=== PATIENT | female | born 1985 | race Hispanic/Latino ===

== ENCOUNTER 2018-06-10 10:32 | Emergency (ER) | payer BC ==
[2018-06-10 10:32] VITALS: BMI 26.6
[2018-06-10 10:46] VITALS: RESP 18; TEMP 98.2; O2SAT 99
--- NOTE | 2018-06-10 10:58 | ED PDOC ---
Arrival/HPI - General Chief Complaint: Anxiety Historian: Patient - History of Present Illness Narrative History of Present Illness (Text): 06/10/18 10:52 33 y/o female, no significant pmh, nkda, c/o lt. sided rib/back injury s/p ceiling collapsed and dry wall hit on the lt. posterior rib region. Pt. has no head/neck/chest/abdomen/extremity injury, no numbness or tingling, no night sweat, no rash, no change in vision, no LOC, able to recall the whole event, no other medical or psychological complaints. Past Medical History - Provider Review Nursing Documentation Reviewed: Yes - Past History Past History: No Previous - Infectious Disease Hx of Infectious Diseases: None - Tetanus Immunization Tetanus Immunization: Unknown - Reproductive Currently : No - Past Medical History Past Medical History: No Previous - Psychiatric Hx Anxiety: Yes Hx Substance Use: No - Past Surgical History Past Surgical History: No Previous - Anesthesia Hx Anesthesia: No - Suicidal Assessment Feels Threatened In Home Enviroment: No Family/Social History - Physician Review Nursing Documentation Reviewed: Yes Family/Social History: Unknown Family HX Smoking Status: Never Smoked Hx Alcohol Use: Yes Frequency of alcohol use: Socially Hx Substance Use: No Hx Substance Use Treatment: No Allergies/Home Meds Allergies/Adverse Reactions: Allergies No Known Allergies Allergy (Verified 06/10/18 10:46) Home Medications: Home Meds Medication Instructions Recorded Confirmed ALPRAZolam [Xanax] 1 mg PO DAILY PRN 06/10/18 06/10/18 Review of Systems - Review of Systems Constitutional: absent: Fatigue, Fevers Eyes: absent: Vision Changes ENT: absent: Hearing Changes Respiratory: absent: SOB, Cough Cardiovascular: absent: Chest Pain Gastrointestinal: absent: Abdominal Pain, Diarrhea, Nausea, Vomiting Musculoskeletal: Arthralgias, Myalgias. absent: Back Pain, Neck Pain Skin: absent: Rash, Pruritis Neurological: absent: Headache, Dizziness Psychiatric: absent: Anxiety, Depression, Suicidal Ideation Physical Exam Vital Signs Reviewed: Yes Vital Signs Temp Pulse Resp BP Pulse Ox 06/10/18 10:42 98.2 F 98 H 18 110/66 99 Temperature: Afebrile Blood Pressure: Normal Pulse: Regular Respiratory Rate: Normal Appearance: Positive for: Well-Appearing, Non-Toxic, Comfortable Pain Distress: Mild Mental Status: Positive for: Alert and Oriented X 3 - Systems Exam Head: Present: Atraumatic, Normocephalic. No: Tenderness, Contusion, Swelling, Ecchymosis, Abrasion, Laceration, Other Pupils: Present: PERRL Extroacular Muscles: Present: EOMI Conjunctiva: Present: Normal Ears: Present: NORMAL TM, Normal Canal. No: Erythema Mouth: Present: Moist Mucous Membranes Pharnyx: No: ERYTHEMA, EXUDATE, TONSILS ENLARGED Nose (External): Present: Atraumatic. No: Abrasion, Contusion, Laceration Nose (Internal): Present: Normal Inspection, No Active Bleeding. No: Edematous, Rhinorrhea, Septal Deviation, Septal Hematoma, Epistaxis Neck: Present: Normal Range of Motion Respiratory/Chest: Present: Clear to Auscultation, Good Air Exchange. No: Respiratory Distress, Accessory Muscle Use Cardiovascular: Present: Regular Rate and Rhythm, Normal S1, S2. No: Murmurs Abdomen: No: Tenderness, Distention, Peritoneal Signs Back: Present: Normal Inspection Upper Extremity: Present: Normal Inspection. No: Cyanosis, Edema Lower Extremity: Present: Normal Inspection. No: Edema Neurological: Present: GCS=15, CN II-XII Intact, Speech Normal, Motor Func Grossly Intact, Gait Normal, Memory Normal Skin: Present: Warm, Dry, Normal Color. No: Rashes Psychiatric: Present: Alert, Oriented x 3, Normal Insight, Normal Concentration Medical Decision Making ED Course and Treatment: 06/10/18 11:05 -xrays -ekg -observe and reassess 06/10/18 13:41 -Urine hcg is negative. -EKG: NSR @ 85 BPM, no ST elevation or depression, no T wave inversion. -Lt. rib and chest xray: Unremarkable radiographs of the chest and left ribs. No left rib fracture. -Dorsal spine: Normal radiographs of the thoracic spine. -Pt. feels well, discussed about the result, incentive spirometer ordered for her for supportive care. -Discharge home with naproxen, lidoderm, bed rest, incentive spirometer, ice compression, follow up with your own pmd and orthopedic within 2 days, retur to the ER for any new or worsening signs or symptoms. - RAD Interpretation Radiology Orders: 06/10/18 10:51 DORSAL (THORACIC) SPINE [RAD] Stat RIBS LEFT & PA CHEST [RAD] Stat -Lt. rib and chest xray: Date of service: 06/10/2018 PROCEDURE: Radiographs of the Chest and Left Ribs. HISTORY: lt. rib injury COMPARISON: None available. TECHNIQUE: Frontal radiograph of the chest and multiple oblique radiographs of the left ribs were obtained. FINDINGS: LEFT RIBS: No fracture or focal lesion visualized. LUNGS: Clear. PLEURA: No pneumothorax or pleural fluid. CARDIOVASCULAR: Normal cardiac size. No pulmonary vascular congestion. No aortic atherosclerotic calcification present OTHER FINDINGS: None. IMPRESSION: Unremarkable radiographs of the chest and left ribs. No left rib fracture. -Dorsal spine: Date of service: 06/10/2018 HISTORY: posterior rib injury COMPARISON: No prior. FINDINGS: BONES: Alignment maintained. No fracture. DISC SPACES: Normal. SOFT TISSUES: Normal. OTHER FINDINGS: None. IMPRESSION: Normal radiographs of the thoracic spine. Tapper Supervisor: Radiologist - EKG Interpretation EKG Interpretation (Text): 06/10/18 11:06 -EKG: NSR @ 85 BPM, no ST elevation or depression, no T wave inversion. Interpreted by ED Physician: Yes Type: 12 lead EKG - PA / MD ALLERGY IMMUNOLOGY / Resident Statement MD/DO has reviewed & agrees with the documentation as recorded. Disposition/Present on Arrival - Present on Arrival Any Indicators Present on Arrival: No History of DVT/PE: No History of Uncontrolled Diabetes: No Urinary Catheter: No History of Decub. Ulcer: No History Surgical Site Infection Following: None - Disposition Have Diagnosis and Disposition been Completed?: Yes Diagnosis: Rib injury, Arthralgia Disposition: HOME/ ROUTINE Disposition Time: 13:42 Patient Plan: Discharge Patient Problems: Current Active Problems Problem Status Onset Arthralgia Acute Rib injury Acute Condition: IMPROVED Discharge Instructions (ExitCare): Muscle and Bone Pain (DC) Additional Instructions: -Discharge home with naproxen, lidoderm, bed rest, incentive spirometer, ice compression, follow up with your own pmd and orthopedic within 2 days, retur to the ER for any new or worsening signs or symptoms. Prescriptions: Lidocaine 5% [Lidoderm] 1 patch TP DAILY PRN #14 patch PRN Reason: Other Naproxen 500 mg PO BID PRN #20 tablet PRN Reason: Other Referrals: FAMILY PROVIDER,NO [Primary Care Provider] - Follow up with primary José Skinner MD [Staff Provider] - Follow up with primary Alcoholics Anonymous [Outside] - Follow up with primary [facility] [place] [facility] [place] - Follow up with primary Forms: [employer] (Ukrainian), WORK NOTE
[2018-06-10 12:00] VITALS: BP 106/68; PULSE 89
--- NOTE | 2018-06-10 13:16 | RAD ---
Date of service: 06/10/2018 PROCEDURE: Radiographs of the Chest and Left Ribs. HISTORY: lt. rib injury COMPARISON: None available. TECHNIQUE: Frontal radiograph of the chest and multiple oblique radiographs of the left ribs were obtained. FINDINGS: LEFT RIBS: No fracture or focal lesion visualized. LUNGS: Clear. PLEURA: No pneumothorax or pleural fluid. CARDIOVASCULAR: Normal cardiac size. No pulmonary vascular congestion. No aortic atherosclerotic calcification present OTHER FINDINGS: None. IMPRESSION: Unremarkable radiographs of the chest and left ribs. No left rib fracture.
--- NOTE | 2018-06-10 13:18 | RAD ---
Date of service: 06/10/2018 HISTORY: posterior rib injury COMPARISON: No prior. FINDINGS: BONES: Alignment maintained. No fracture. DISC SPACES: Normal. SOFT TISSUES: Normal. OTHER FINDINGS: None. IMPRESSION: Normal radiographs of the thoracic spine.
--- NOTE | 2018-06-11 08:17 | CARD ---
APPROVED REPORT Date of service: 06/10/2018 EKG Measurement Heart [id number] <Conclusion> Normal sinus rhythm Normal ECG
== END 2018-06-10 14:00 | disposition home or self-care (01) ==
LOC: ED 10:32
DX: S29.9XXA Unspecified injury of thorax, initial encounter (principal); W20.8XXA Other cause of strike by thrown, projected or falling object, initial encounter; M25.50 Pain in unspecified joint
CPT/HCPCS: 71101; 72070; 81025; 93005; 96372; 99283; J1885

== ENCOUNTER 2018-06-10 16:33 | Emergency (ER) | payer BC ==
[2018-06-10 16:56] VITALS: BMI 27.3
--- NOTE | 2018-06-10 18:46 | ED PDOC ---
Arrival/HPI - General Chief Complaint: Headache Time Seen by Provider: 06/10/18 17:33 Historian: Patient - History of Present Illness Narrative History of Present Illness (Text): 06/10/18 18:42 33yr old female presents today with headache, dizziness, photophobia s/p injury. pt states today part of her ceiling feel onto her. pt states she found herself on the ground. pt states initially she wasnt having a headache. pt states now she is having a headache, feeling dizzy and having multiple episodes of vomiting at home. pt denies abdominal pain. no chest pain or shortness of breath. pt denies numbness, weakness, tingling in the extremities. c/o upper back and neck pain. no other complaints. Symptom Onset: Sudden Symptom Course: Improving Past Medical History - Provider Review Nursing Documentation Reviewed: Yes - Travel History Have you recently traveled outside [place] w/in the past 3 mons?: No - Past History Past History: No Previous - Infectious Disease Hx of Infectious Diseases: None - Tetanus Immunization Tetanus Immunization: Unknown - Reproductive Currently : No - Past Medical History Past Medical History: No Previous - Psychiatric Hx Anxiety: Yes Hx Substance Use: No - Past Surgical History Past Surgical History: No Previous - Anesthesia Hx Anesthesia: No - Suicidal Assessment Feels Threatened In Home Enviroment: No Family/Social History - Physician Review Nursing Documentation Reviewed: Yes Family/Social History: Unknown Family HX Smoking Status: Never Smoked Hx Alcohol Use: Yes Hx Substance Use: No Hx Substance Use Treatment: No Allergies/Home Meds Allergies/Adverse Reactions: Allergies No Known Allergies Allergy (Verified 06/10/18 10:46) Home Medications: Home Meds Medication Instructions Recorded Confirmed ALPRAZolam [Xanax] 1 mg PO DAILY PRN 06/10/18 06/10/18 Review of Systems - Review of Systems Constitutional: absent: Fatigue, Fevers Eyes: Photophobia. absent: Vision Changes Respiratory: absent: SOB, Cough Cardiovascular: absent: Chest Pain, Palpitations Gastrointestinal: Nausea, Vomiting. absent: Abdominal Pain, Constipation, Diarrhea Genitourinary Female: absent: Dysuria Musculoskeletal: Back Pain, Neck Pain. absent: Arthralgias Skin: absent: Rash, Pruritis Neurological: Headache, Dizziness Psychiatric: absent: Anxiety, Depression, Suicidal Ideation Physical Exam Vital Signs Reviewed: Yes Vital Signs Temp Pulse Resp BP Pulse Ox 06/10/18 17:00 97.3 F L 83 18 109/68 95 Temperature: Afebrile Blood Pressure: Normal Pulse: Regular Respiratory Rate: Normal Appearance: Positive for: Well-Appearing, Non-Toxic, Comfortable Pain Distress: None Mental Status: Positive for: Alert and Oriented X 3 - Systems Exam Head: Present: Atraumatic. No: Tenderness, Swelling, Ecchymosis Pupils: Present: PERRL Extroacular Muscles: Present: EOMI Conjunctiva: Present: Normal Ears: Present: Normal, NORMAL TM Mouth: Present: Moist Mucous Membranes Pharnyx: Present: Normal Nose (External): Present: Atraumatic Nose (Internal): Present: Normal Inspection Neck: Present: Normal Range of Motion, MIDLINE TENDERNESS, Paraspinal Tenderness, Trachea Midline Respiratory/Chest: Present: Clear to Auscultation, Good Air Exchange. No: Respiratory Distress, Accessory Muscle Use, Tender to Palpation Cardiovascular: Present: Regular Rate and Rhythm, Normal S1, S2. No: Murmurs Abdomen: Present: Normal Bowel Sounds. No: Tenderness, Distention, Rebound, Guarding Back: Present: Normal Inspection, Paraspinal Tenderness (+ left sided thoracic paraspinal tenderness. no edema. no midline tenderness. ). No: Midline Tenderness Upper Extremity: Present: Normal Inspection, Normal ROM Lower Extremity: Present: Normal Inspection, Normal ROM Neurological: Present: GCS=15, Speech Normal, Motor Func Grossly Intact, Normal Sensory Function Skin: Present: Warm, Dry, Normal Color. No: Rashes Psychiatric: Present: Alert, Oriented x 3 Medical Decision Making ED Course and Treatment: 06/10/18 18:51 33yr old female with headache and dizziness s/p head injury. head ct; FINDINGS: BRAIN No acute intraparenchymal hemorrhage. No mass lesion. No CT evidence for acute territorial infarct. No midline shift or extra-axial collections. VENTRICLES: No hydrocephalus. ORBITS: The orbits are unremarkable. SINUSES AND MASTOIDS: The paranasal sinuses and mastoid air cells are clear. BONES: No fracture. SOFT TISSUES: Unremarkable. IMPRESSION: No acute intracranial abnormality. Electronically signed on Jun 10, 2018 7:39:32 PM EST by: Primo Flaherty M.D., Certified by ABR, Diagnostic Radiology cervical spine ct; FINDINGS: ALIGNMENT: Bony alignment is anatomic. Marginal osteophytic spurring arises from C5, C6 and C7. DEGENERATIVE CHANGES: No significant canal stenosis or neural foraminal narrowing evident. There is mild degenerative disc disease noted at C5-6. SOFT TISSUES: The prevertebral soft tissues are within normal limits. BONES: No acute fracture or aggressive appearing osseous lesion. SINUSES: Incidental note is made of focal sinusitis in the posterior sphenoid sinus. IMPRESSION: 1. No acute cervical spine abnormality. 2. Evidence of mild degenerative disc disease at C5-6. 3. Marginal osteophytic spurring arises from the C5, C6, C7 vertebrae. 4. Incidental note is made of minimal focal sinusitis in the sphenoid sinus. Electronically signed on Jun 10, 2018 8:39:26 PM EST by: Cleveland Gramajo M.D., SHANE Certified By [facility]BR & [facility] Fellowship Trained MRI and CT Specialist eduardo gallo 06/10/18 20:38 while in the ER, the patient began to feel anxious and she saw someone who reminded her of her mother. 0.5 mg of Xanax were given by mouth. I discussed results in depth with the patient. This been no vomiting in the ER. Her headache has resolved. She denies dizziness. I've advised follow-up with primary care physician within the next 2 days and return immediately if symptoms worsen persist or if new concerning symptoms develop Patient verbalizes understanding of discharge instructions and need for immediate followup. all aspects of this case were discussed the attending of record. Impression: Head injury, concussion symptoms Tylenol every 4 hours as needed for pain Increase fluids Follow-up with the primary care physician within the next 2 days Follow-up with the neurologist within the next 2 days Return immediately if symptoms worsen persist or if new concerning symptoms develop 06/10/18 20:47 - RAD Interpretation Radiology Orders: 06/10/18 18:40 CERVICAL SPINE W/O CONTRAST [CT] Stat HEAD W/O CONTRAST [CT] Stat - Medication Orders Current Medication Orders: Ondansetron HCl (Zofran Odt) 4 mg PO STAT STA Stop: 06/10/18 18:42 Disposition/Present on Arrival - Present on Arrival Any Indicators Present on Arrival: No History of DVT/PE: No History of Uncontrolled Diabetes: No Urinary Catheter: No History of Decub. Ulcer: No History Surgical Site Infection Following: None - Disposition Have Diagnosis and Disposition been Completed?: Yes Diagnosis: Head injury, Headache Disposition: HOME/ ROUTINE Disposition Time: 20:39 Patient Plan: Discharge Condition: GOOD Discharge Instructions (ExitCare): Concussion in Adults, Closed Head Injury (DC), Headache, Adult (DC) Additional Instructions: Tylenol every 4 hours as needed for pain Increase fluids Follow-up with the primary care physician within the next 2 days Follow-up with the neurologist within the next 2 days Return immediately if symptoms worsen persist or if new concerning symptoms develop Referrals: Rayshawn Monterroso MD [Staff Provider] - Follow up with primary Candace Woodall MD [Medical Doctor] - Follow up with primary [facility] [Outside] - Follow up with primary Forms: [employer] (Mongolian), WORK NOTE
[2018-06-10 21:19] VITALS: BP 110/72; PULSE 80; RESP 19; O2SAT 99
[2018-06-10 21:22] VITALS: TEMP 97.6
--- NOTE | 2018-06-11 08:32 | CT ---
Date of service: 06/10/2018 PROCEDURE: CT HEAD WITHOUT CONTRAST. HISTORY: headache s/p head injury COMPARISON: Unenhanced head CT 06/03/2012. TECHNIQUE: Axial computed tomography images were obtained through the head/brain without intravenous contrast. Radiation dose: Total exam DLP = 908.28 mGy-cm. This CT exam was performed using one or more of the following dose reduction techniques: Automated exposure control, adjustment of the mA and/or kV according to patient size, and/or use of iterative reconstruction technique. FINDINGS: HEMORRHAGE: No intracranial hemorrhage. BRAIN: Normal childers-white matter differentiation and density are appreciated throughout the cerebrum and cerebellum with the brainstem appearing unremarkable as well. There is no mass effect. There is no suspicious extra-axial fluid collection and the midline brain anatomy appears diffusely unremarkable. VENTRICLES: Unremarkable. No hydrocephalus. CALVARIUM: No destructive bony lesion or displaced fracture identified including through the skullbase. PARANASAL SINUSES: Unremarkable as visualized. No significant inflammatory changes. MASTOID AIR CELLS: Unremarkable as visualized. No inflammatory changes. OTHER FINDINGS: None. IMPRESSION: Stable, unremarkable unenhanced head CT. Concordant preliminary report from [facility], 06/10/2018 7:39 p.m..
--- NOTE | 2018-06-11 08:37 | CT ---
Date of service: 06/10/2018 PROCEDURE: CT Cervical Spine without contrast HISTORY: neck pain s/p injury COMPARISON: None available. TECHNIQUE: Axial computed tomography images were obtained of the cervical spine without the use of intravenous contrast. Coronal and sagittal reformatted images were created and reviewed. Radiation dose: Total exam DLP = 609.32 mGy-cm. This CT exam was performed using one or more of the following dose reduction techniques: Automated exposure control, adjustment of the mA and/or kV according to patient size, and/or use of iterative reconstruction technique. FINDINGS: VERTEBRAE: No fracture or spondylolisthesis appreciable. Straightened curvature noted. Odontoid process and C1 ring remain intact. Craniocervical junction appears unremarkable. DISCS/SPINAL CANAL/NEURAL FORAMINA: No significant central canal or neural foraminal stenosis. Discs heights are grossly preserved. Moderate spondylosis C5-6, mildly increased in the interval, predominantly anteriorly once again. No significant stenosis resulting. PARASPINAL SOFT TISSUES: Unremarkable. OTHER FINDINGS: None. IMPRESSION: Stable straightening of the cervical curvature without fracture or spondylolisthesis evident. Moderate spondylosis reiterated at C5-6 without significant stenosis resulting.
== END 2018-06-10 21:07 | disposition home or self-care (01) ==
LOC: ED 16:33
DX: S09.90XA Unspecified injury of head, initial encounter (principal); W20.8XXA Other cause of strike by thrown, projected or falling object, initial encounter

== ENCOUNTER 2018-06-20 10:50 | Outpatient (CLI) | payer BC | END 2018-06-20 10:51 | disposition home or self-care (01) | LOC: LAB 10:50 ==

== ENCOUNTER 2018-07-02 14:01 | Outpatient (CLI) | payer BC | END 2018-07-02 14:02 | disposition home or self-care (01) | LOC: RAD 14:01 ==